=== PATIENT | female | born 1995 | race African-American/Black ===

== ENCOUNTER 2020-05-02 06:26 | Emergency (ER) | payer BC, OTHER ==
[~2020-05-02] VITALS: Ht 180.3 cm; Wt 94.3 kg
[2020-05-02 07:27] VITALS: BP 147/89
[2020-05-02] MEDS ORDERED: KETOROLAC TROMETH 60MG/2ML VIAL IM ONE (08:30)
== END 2020-05-02 08:44 | disposition home or self-care (01) ==
LOC: ER 06:26
DX: R51.9 Headache, unspecified (principal)
CPT/HCPCS: 70450; 96372; 99284; J1885

== ENCOUNTER 2020-11-29 05:39 | Emergency (ER) | payer BC ==
[~2020-11-29] VITALS: Ht 182.9 cm; Wt 97.5 kg
[2020-11-29 05:46] VITALS: BP 128/93
[2020-11-29] MEDS ORDERED: ONDANSETRON ODT 4 MG TAB PO ONE (07:30)
[2020-11-29] MEDS ORDERED: KETOROLAC TROMETH 60MG/2ML VIAL IM ONE (07:30)
== END 2020-11-29 08:44 | disposition home or self-care (01) ==
LOC: ER 05:39
DX: G43.909 Migraine, unspecified, not intractable, without status migrainosus (principal); F41.9 Anxiety disorder, unspecified; F32.9 Major depressive disorder, single episode, unspecified; F17.210 Nicotine dependence, cigarettes, uncomplicated
CPT/HCPCS: 70450; 96372; 99284; J1885; Q0162